=== PATIENT | female | born 1985 | race Caucasian/White ===

== ENCOUNTER 2017-07-26 06:15 | Inpatient (IN) | payer OTHER ==
[~2017-07-26] VITALS: Ht 157.5 cm; Wt 87.1 kg
[2017-07-26] MEDS ORDERED: PRENATABS RX T1 EACH PO (06:39)
== END 2017-07-28 14:43 | disposition home or self-care (01) | DRG 767 ==
LOC: OB/GYN 06:15 → LDR 06:15 → OB/GYN 11:12
PROC: 0KQM0ZZ Repair Perineum Muscle, Open Approach (ICD-10-PCS; principal; 2017-07-26)
PROC: 10E0XZZ Delivery of Products of Conception, External Approach (ICD-10-PCS; 2017-07-26)
PROC: 0UT70ZZ Resection of Bilateral Fallopian Tubes, Open Approach (ICD-10-PCS; 2017-07-27)
PROC: 4A1HXCZ Monitoring of Products of Conception, Cardiac Rate, External Approach (ICD-10-PCS; 2017-07-27)
DX: O70.1 Second degree perineal laceration during delivery (principal); Z37.0 Single live birth; O60.14X0 Preterm labor third trimester with preterm delivery third trimester, not applicable or unspecified; O98.513 Other viral diseases complicating pregnancy, third trimester; O42.913 Preterm premature rupture of membranes, unspecified as to length of time between rupture and onset of labor, third trimester; O99.820 Streptococcus B carrier state complicating pregnancy; Z3A.33 33 weeks gestation of pregnancy; Z30.2 Encounter for sterilization; Z64.1 Problems related to multiparity